=== PATIENT | male | born 1975 ===

== ENCOUNTER 2017-05-26 12:55 | Emergency (ER) | payer OTHER ==
[2017-05-26 13:28] VITALS: BP 129/79; PULSE 67; RESP 18; TEMP 97; O2SAT 100
[2017-05-26] MEDS ORDERED: Naproxen 500 MG TAB PO STA (13:54)
[2017-05-26] MEDS ORDERED: Naproxen 500 MG TAB PO ONE (14:01)
--- NOTE | 2017-05-26 14:08 | ED PDOC ---
Upper Extremity Pain/Injury Time Seen by Provider: 05/26/17 13:35 Chief Complaint (Nursing): Upper Extremity Problem/Injury Chief Complaint (Provider): Left arm pain History Per: Patient History/Exam Limitations: no limitations Onset/Duration Of Symptoms: Hrs Current Symptoms Are (Timing): Still Present Additional Complaint(s): Patient reports pain to the left upper arm, onset following injury this morning. Reports he was at the gym and felt a pulling sensation in the arm. Otherwise: (-) numbness, (-) other injury, (-) decrease in ROM otherwise. PMD: Dr. Nicole Arvizu Past Medical History Reviewed: Historical Data, Nursing Documentation, Vital Signs Vital Signs: Last Vital Signs Temp 97 F L 05/26/17 13:23 Pulse 67 05/26/17 13:23 Resp 18 05/26/17 13:23 BP 129/79 05/26/17 13:23 Pulse Ox 100 05/26/17 13:23 - Medical History PMH: Asthma (mild intermittent) - Surgical History Surgical History: Tonsillectomy - Family History Family History: States: Unknown Family Hx - Social History Current smoker - smoking cessation education provided: No Alcohol: None Drugs: Denies - Immunization History Hx Tetanus Toxoid Vaccination: No Hx Influenza Vaccination: No Hx Pneumococcal Vaccination: No - Home Medications Home Medications: Ambulatory Orders Medication Instructions Recorded Cyclobenzaprine Hydrochlorid 5 mg PO TID PRN #15 tab 08/15/14 [Cyclobenzaprine] Ibuprofen 600 mg PO Q6H PRN #15 tab 08/15/14 traMADol [Ultram] 50 mg PO Q6 PRN #10 tab 08/15/14 Naproxen 500 mg PO BID PRN #20 tablet 05/26/17 - Allergies Allergies/Adverse Reactions: Allergies Allergy/AdvReac Type Severity Reaction Status Date / Time latex Allergy RASH Verified 05/26/17 13:28 Review of Systems ROS Statement: Except As Marked, All Systems Reviewed And Found Negative Musculoskeletal: Positive for: Arm Pain (left) Neurological: Negative for: Numbness Physical Exam - Reviewed Nursing Documentation Reviewed: Yes Vital Signs Reviewed: Yes - Physical Exam Comments: GENERAL APPEARANCE: Patient is awake, alert, oriented x 3, in mild painful distress. SKIN: Warm, dry; (-) cyanosis. UPPER EXTREMITY: (+) patient unable to fully extend at the left elbow joint; left upper extremity held in slight flexion, (+) prominence of biceps muscle with palpable depression in the L antecubital fossa; (-) swelling, (-) ecchymosis, (+) capillary refill intact. CARDIOVASCULAR: (+) distal pulses. NEUROLOGIC: (+) distal sensation. - ECG O2 Sat by Pulse Oximetry: 100 (RA) Pulse Ox Interpretation: Normal Medical Decision Making Medical Decision Making: Clinical Impression: High suspicion for biceps tendon rupture Time: 13:54 Initial Plan: --Naproxen 500 mg PO --CT Left Upper Extremity --Arm sling --Ice Time: 14:40 CT UPPER EXTREMITY: FINDINGS: Abnormal signal changes seen in the deep subcutaneous fat distal to the biceps muscle and approximating the biceps tendon. Is difficult to exclude a tear of the biceps tendon, complete or incomplete and follow-up MRI is advised without contrast for greater detailed soft tissue resolution. Otherwise, density of the musculature in the flexor or extensor compartments of the upper arm appears unremarkable. There is no fracture or dislocation appreciated or destructive bony lesion identified. IMPRESSION: Findings suspicious but not definitive for tear of the biceps tendon and follow- up MRI is strongly advised for greater soft tissue resolution of the biceps muscle and tendons related. No fracture subluxation or dislocation identified throughout the exam. Limited soft tissue edema is seen approximating the distal biceps tendon. CT results d/w the patient. Call placed to ortho metal bonding helper Dr Page. Multiple calls placed to Dr. Page, can back is still pending. Patient is refusing to wait for call back from the orthopedist, is requesting to leave AMA. Patient refuses further care, evaluation or treatment in the ER. Patient informed of the reasons for the following and planned treatment, which patient understands, however still refuses. Patient informed of the risk and benefits of treatment. Informed that the risk could include worsening of current conditions, undiagnosed conditions, disability or even . Patient understands the following risk and the benefits of treatment. Patient has the capacity to make decisions and still refuses treatment by RN, PA and ER MD. Patient encouraged to return to the ER at any time and to follow up with pmd. Dr. Page called the ER back, however the patient has left AMA already. Dr. Page notified that the patient was instructed to f/u with him tomorrow. Scribe Attestation: Documented by Hui Richey, acting as a scribe for Trupti Zacarias PA-C Provider Scribe Attestation: All medical record entries made by the Scribe were at my direction and personally dictated by me. I have reviewed the chart and agree that the record accurately reflects my personal performance of the history, physical exam, medical decision making, and the department course for this patient. I have also personally directed, reviewed, and agree with the discharge instructions and disposition. Disposition - Clinical Impression Clinical Impression: Arm pain, Biceps tendon rupture - Patient ED Disposition Is Patient to be Admitted: No Counseled Patient/Family Regarding: Studies Performed, Diagnosis, Need For Followup, Rx Given - Disposition Referrals: Trevor Page III, MD [Staff Provider] - Disposition: Routine/Home Disposition Time: 16:00 Condition: STABLE Additional Instructions: Thank you for letting us take care of you today. You were treated for L arm pain , possible biceps tendon rupture. The emergency medical care you received today was directed at your acute symptoms. If you were prescribed any medication, please fill it and take as directed. It may take several days for your symptoms to resolve. Return to the Emergency Department if your symptoms worsen, do not improve, or if you have any other problems. Please contact your doctor in 2 days for re-evaluation and follow up / or call one of the physicians/clinics you have been referred to that are listed on the Patient Visit Information form that is included in your discharge packet. Bring any paperwork you were given at discharge with you along with any medications you are taking to your follow up visit. Our treatment cannot replace ongoing medical care by a primary care provider (PCP) outside of the emergency department. Thank you for allowing the [facility] team to be part of your care today. If you had a CT scan: A Radiologist will review the ED reading if any change in treatment is needed we will contact you. Prescriptions: Naproxen 500 mg PO BID PRN #20 tablet PRN Reason: Pain, Moderate (4-7) Instructions: Leaving Against Medical Advice Forms: [facility] ([place]), [facility] ED School/Work Excuse - POA Present On Arrival: None - PA / BUCKLE STRINGER / Resident Statement MD/DO has reviewed & agrees with the documentation as recorded.
--- NOTE | 2017-05-26 14:42 | CT ---
PROCEDURE: CT Right Upper Extremity without contrast HISTORY: arm pain, r/o biceps tendon rupture COMPARISON: None available TECHNIQUE: A volumetric CT acquisition was performed in the axial plane through the right humerus and elbow with reformatted datasets provided in sagittal axial and coronal planes. There is no prior comparison available. Radiation dose: Total exam DLP = 404.61 mGy-cm. This CT exam was performed using one or more of the following dose reduction techniques: Automated exposure control, adjustment of the mA and/or kV according to patient size, and/or use of iterative reconstruction technique. FINDINGS: Abnormal signal changes seen in the deep subcutaneous fat distal to the biceps muscle and approximating the biceps tendon. Is difficult to exclude a tear of the biceps tendon, complete or incomplete and follow-up MRI is advised without contrast for greater detailed soft tissue resolution. Otherwise, density of the musculature in the flexor or extensor compartments of the upper arm appears unremarkable. There is no fracture or dislocation appreciated or destructive bony lesion identified. IMPRESSION: Findings suspicious but not definitive for tear of the biceps tendon and follow-up MRI is strongly advised for greater soft tissue resolution of the biceps muscle and tendons related. No fracture subluxation or dislocation identified throughout the exam. Limited soft tissue edema is seen approximating the distal biceps tendon.
== END 2017-05-26 17:00 | disposition left against medical advice (07) ==
LOC: H.ER 12:55
DX: M79.602 Pain in left arm (principal)